=== PATIENT | female | born 1985 ===

== ENCOUNTER 2017-06-10 17:28 | Emergency (ER) | payer MEDICAID ==
[2017-06-10 17:28] VITALS: BMI 28.9
[2017-06-10 17:55] VITALS: BP 103/57; PULSE 74; RESP 16; TEMP 98.8; O2SAT 100
[2017-06-10] MEDS ORDERED: Sodium Chloride 0.9% 1,000 ML IV STA (18:51)
--- NOTE | 2017-06-10 18:54 | ED PDOC ---
HPI: Abdomen Time Seen by Provider: 06/10/17 18:35 Chief Complaint (Nursing): Abdominal Pain Chief Complaint (Provider): Abdominal pain History Per: Patient Additional Complaint(s): 31 yo female, no PMH, presents to ED for evaluation of lower abdominal/pelvic pain x 1 month. No vaginal discharge, no concern for STI LMP 05/28/17. Pt reports it was a very heavy period, worse than usual. Pt has been taking Aleve with mild relief. Past Medical History Reviewed: Nursing Documentation, Vital Signs Vital Signs: Last Vital Signs Temp 98.8 F 06/10/17 17:51 Pulse 74 06/10/17 17:51 Resp 16 06/10/17 17:51 BP 103/57 L 06/10/17 17:51 Pulse Ox 100 06/10/17 18:55 - Medical History PMH: Anemia, Anxiety Denies: Chronic Kidney Disease - Surgical History Surgical History: No Surg Hx - Family History Family History: States: No Known Family Hx - Living Arrangements Living Arrangements: With Family - Social History Current smoker - smoking cessation education provided: No Alcohol: Social Drugs: Denies - Home Medications Home Medications: Ambulatory Orders Medication Instructions Recorded Ibuprofen [Motrin Tab] 800 mg PO TID 07/16/16 - Allergies Allergies/Adverse Reactions: Allergies Allergy/AdvReac Type Severity Reaction Status Date / Time No Known Allergies Allergy Verified 02/14/16 11:22 Review of Systems ROS Statement: Except As Marked, All Systems Reviewed And Found Negative Gastrointestinal: Positive for: Abdominal Pain Physical Exam - Reviewed Nursing Documentation Reviewed: Yes Vital Signs Reviewed: Yes - Physical Exam Appears: Positive for: Well, Non-toxic, No Acute Distress Head Exam: Positive for: ATRAUMATIC, NORMAL INSPECTION, NORMOCEPHALIC Skin: Positive for: Normal Color, Warm, DRY Eye Exam: Positive for: EOMI, Normal appearance, PERRL ENT: Positive for: Normal ENT Inspection Neck: Positive for: Normal, Painless ROM Cardiovascular/Chest: Positive for: Regular Rate, Rhythm Respiratory: Positive for: CNT, Normal Breath Sounds Gastrointestinal/Abdominal: Positive for: Bowel Sounds, Soft, Tenderness (mild suprapubic). Negative for: Distended, Guarding Back: Positive for: Normal Inspection Extremity: Positive for: Normal ROM Neurologic/Psych: Positive for: Alert, Oriented - Laboratory Results Result Diagrams: 06/10/17 18:45 06/10/17 18:45 - ECG O2 Sat by Pulse Oximetry: 100 Medical Decision Making Medical Decision Making: IV access established and treatment initiated with Toradol and IVF Diagnostics ordered. CBC, COMP and UA resulted WNL US pending Case endorsed to JORGE LUIS Bailey at 20:00 pending diagnostic review and re-eval Disposition - Clinical Impression Clinical Impression: Abdominal discomfort - Patient ED Disposition Is Patient to be Admitted: Transfer of Care (jane) - Disposition Disposition: Transfer of Care ([facility]) Disposition Time: 20:10 Condition: STABLE
[2017-06-10 19:07] LABS: BASO % 0.2 % (0.0-2.0); EOS # 0.1 K/uL (0.0-0.7); EOS % 1.5 % (0.0-4.0); HEMATOCRIT 37.3 % (34.0-47.0); LYMPH # 1.4 K/uL (1.0-4.3); LYMPH % 17.9 % (20.0-40.0); MEAN CELL VOLUME 83.4 fl (81.0-99.0); MEAN CORPUSCULAR HEMOGLOBIN 26.9 pg (27.0-31.0); MEAN CORPUSCULAR HGB CONC 32.3 g/dL (33.0-37.0); MEAN PLATELET VOLUME 10.1 fl (7.2-11.7); MONO # 0.5 K/uL (0.0-0.8); MONO % 6.1 % (0.0-10.0); NEUT # 5.9 K/uL (1.8-7.0); NEUT % 74.3 % (50.0-75.0); RED CELL DISTRIBUTION WIDTH 15.4 % (11.5-14.5); WHITE BLOOD COUNT 7.9 K/uL (4.8-10.8)
[2017-06-10 19:21] LABS: RBC URINE 2 /hpf (0-3); URINE BACTERIA RARE (<OCC); URINE BILIRUBIN NEGATIVE (NEGATIVE); URINE BLOOD NEGATIVE (NEGATIVE); URINE COLOR YELLOW (YELLOW); URINE GLUCOSE (UA) NEG (Normal); URINE KETONE NEGATIVE (NEGATIVE); URINE LEUKOCYTE ESTERASE NEG Leu/uL (Negative); URINE PROTEIN NEGATIVE (NEGATIVE); URINE UROBILINOGEN 0.2-1.0 mg/dL (0.2-1.0); WBC URINE < 1 /hpf (0-5)
[2017-06-10 19:24] LABS: ALB/GLOB RATIO 1.2 (1.0-2.1); ALKALINE PHOSPHATASE 68 U/L (38-126); ALT/SGPT 34 U/L (9-52); AMYLASE 93 U/L (30-110); AST/SGOT 23 U/L (14-36); BILIRUBIN,TOTAL 0.4 mg/dl (0.2-1.3); BLOOD UREA NITROGEN 12 mg/dl (7-17); CALCIUM 9.2 mg/dL (8.4-10.2); CARBON DIOXIDE 25 mmol/L (22-30); CHLORIDE 105 mmol/L (98-107); GFR AFRICAN-AMERICAN > 60; GLUCOSE,RANDOM 86 mg/dL (65-105); LIPASE 48 U/L (23-300); POTASSIUM 4.2 MMOL/L (3.6-5.0); SODIUM 140 mmol/l (132-148); TOTAL PROTEIN 7.9 G/DL (6.3-8.2)
--- NOTE | 2017-06-10 20:58 | ED PDOC ---
- Laboratory Results Result Diagrams: 06/10/17 18:45 06/10/17 18:45 - ECG O2 Sat by Pulse Oximetry: 100 - Progress ED Course And Treament: Case endorsed to life underwriter from Dee KANG pending u/s On re-eval, patient states she does not wish to wait for ultrasound to come in. Patient denies upper abdominal pain, notes improvement of her suprapubic pain that has been going on for [address] abd/pelvis ordered. EXAM: CT Abdomen and Pelvis Without Intravenous Contrast CLINICAL HISTORY: 31 years old, female; Pain; Abdominal pain; Other: Low abd pain TECHNIQUE: Axial computed tomography images of the abdomen and pelvis without intravenous contrast. This CT exam was performed using one or more of the following dose reduction techniques: automated exposure control, adjustment of the mA and/or kV according to patient size, and/ or use of iterative reconstruction technique. Coronal and sagittal reformatted images were created and reviewed. COMPARISON: No relevant prior studies available. FINDINGS: Limitations: Lack of intravenous contrast. Lower thorax: No acute findings. ABDOMEN: Liver: Unremarkable. Gallbladder and bile ducts: No calcified stones. No ductal dilation. Pancreas: Unremarkable. No ductal dilation. Spleen: No splenomegaly. Adrenals: No mass. Kidneys and ureters: No renal calculi. No hydronephrosis. Stomach and bowel: No definite mural thickening. No obstruction. Appendix: Normal caliber. No inflammation. PELVIS: Bladder: Unremarkable. No stones. Reproductive: Unremarkable as visualized. ABDOMEN and PELVIS: Intraperitoneal space: No significant fluid collection. No free air. Bones/joints: No acute fracture. Soft tissues: Unremarkable. Vasculature: Unremarkable. No aneurysm. Lymph nodes: No pathologically enlarged lymph nodes. IMPRESSION: 1. No definite acute intraabdominal abnormality. 2. Incidental/non-acute findings are described above. On re-eval, patient resting comfortably. Patient states pain is same type of pain she has been having for 1 month, was sent for outpatient u/s by [employer] but is having a hard time due to insurance issues. Patient was offered to stay until on-call ultrasound comes in, but states she would like to go home. Patient was educated on findings, discharged with rx Naproxen. Advised to follow up with [facility] as scheduled. Return to ED for worsening/concerning symptoms. Disposition - Clinical Impression Clinical Impression: Abdominal discomfort - POA Present On Arrival: None - Disposition Disposition: Routine/Home Disposition Time: 22:11 Condition: IMPROVED Prescriptions: Naproxen [Naprosyn] 500 mg PO Q12 PRN #20 tablet PRN Reason: Pain, Moderate (4-7) Instructions: Abdominal Pain (ED), Pelvic Pain in Women (ED)
--- NOTE | 2017-06-10 21:19 | CT ---
EXAM: CT Abdomen and Pelvis Without Intravenous Contrast CLINICAL HISTORY: 31 years old, female; Pain; Abdominal pain; Other: Low abd pain TECHNIQUE: Axial computed tomography images of the abdomen and pelvis without intravenous contrast. This CT exam was performed using one or more of the following dose reduction techniques: automated exposure control, adjustment of the mA and/or kV according to patient size, and/or use of iterative reconstruction technique. Coronal and sagittal reformatted images were created and reviewed. COMPARISON: No relevant prior studies available. FINDINGS: Limitations: Lack of intravenous contrast. Lower thorax: No acute findings. ABDOMEN: Liver: Unremarkable. Gallbladder and bile ducts: No calcified stones. No ductal dilation. Pancreas: Unremarkable. No ductal dilation. Spleen: No splenomegaly. Adrenals: No mass. Kidneys and ureters: No renal calculi. No hydronephrosis. Stomach and bowel: No definite mural thickening. No obstruction. Appendix: Normal caliber. No inflammation. PELVIS: Bladder: Unremarkable. No stones. Reproductive: Unremarkable as visualized. ABDOMEN and PELVIS: Intraperitoneal space: No significant fluid collection. No free air. Bones/joints: No acute fracture. Soft tissues: Unremarkable. Vasculature: Unremarkable. No aneurysm. Lymph nodes: No pathologically enlarged lymph nodes. IMPRESSION: 1. No definite acute intraabdominal abnormality. 2. Incidental/non-acute findings are described above.
== END 2017-06-10 22:45 | disposition home or self-care (01) ==
LOC: H.ER 17:28
DX: R10.9 Unspecified abdominal pain (principal)

== ENCOUNTER 2018-08-03 18:06 | Emergency (ER) | payer MEDICAID, OTHER ==
[2018-08-03 18:06] VITALS: BMI 28.9
[2018-08-03 18:51] VITALS: BP 108/72; PULSE 97; RESP 20; TEMP 98.9; O2SAT 98
--- NOTE | 2018-08-03 19:01 | ED PDOC ---
HPI: CCC, URI, Sore Throat Time Seen by Provider: 08/03/18 18:53 Chief Complaint (Nursing): Cough, Cold, Congestion Chief Complaint (Provider): Cough History Per: Patient Onset/Duration Of Symptoms: Days (x2) Current Symptoms Are (Timing): Still Present Location Of Pain: None Associated Symptoms: Cough (mild). denies: Fever, Chills Ear Symptoms: Bilateral: None Additional Complaint(s): Zakia Wick is a 33 year old female, with a past medical history of Lupus, who presents to the emergency department complaining of a mild cough ongoing for x2 days. Patient states x3 days ago she noticed her air conditioner at home was building up water and patient was concerned she was "inhaling" bacteria. She did not take any medication for symptoms. She denies any fever, chills, shortness of breath, chest pain or other medical complaints. PMD: Fredi Gastelum Past Medical History Reviewed: Historical Data, Nursing Documentation, Vital Signs Vital Signs: Last Vital Signs Temp 98.9 F 08/03/18 18:49 Pulse 97 H 08/03/18 18:49 Resp 20 08/03/18 18:49 BP 108/72 08/03/18 18:49 Pulse Ox 98 08/03/18 19:12 - Medical History PMH: Anemia, Anxiety Other PMH: Lupus - Surgical History Other surgeries: Lipoma removed from left leg - Family History Family History: States: No Known Family Hx - Living Arrangements Living Arrangements: With Family - Social History Current smoker - smoking cessation education provided: No Alcohol: None Drugs: Denies - Home Medications Home Medications: Ambulatory Orders Medication Instructions Recorded Ibuprofen [Motrin Tab] 800 mg PO TID 07/16/16 Naproxen [Naprosyn] 500 mg PO Q12 PRN #20 tablet 06/10/17 Albuterol HFA [Ventolin HFA 90 1 puff IH ASDIR #1 unit 08/03/18 mcg/actuation (8 g)] - Allergies Allergies/Adverse Reactions: Allergies Allergy/AdvReac Type Severity Reaction Status Date / Time No Known Allergies Allergy Verified 08/03/18 18:48 Review of Systems ROS Statement: Except As Marked, All Systems Reviewed And Found Negative Constitutional: Negative for: Fever, Chills Cardiovascular: Negative for: Chest Pain Respiratory: Positive for: Cough (mild). Negative for: Shortness of Breath Gastrointestinal: Negative for: Nausea, Vomiting Neurological: Negative for: Headache, Dizziness Physical Exam - Reviewed Nursing Documentation Reviewed: Yes Vital Signs Reviewed: Yes - Physical Exam Appears: Positive for: Well, Non-toxic, No Acute Distress Head Exam: Positive for: ATRAUMATIC, NORMAL INSPECTION, NORMOCEPHALIC Skin: Positive for: Normal Color. Negative for: Rash Eye Exam: Positive for: Normal appearance Neck: Positive for: Painless ROM Cardiovascular/Chest: Positive for: Regular Rate, Rhythm. Negative for: Murmur Respiratory: Positive for: Normal Breath Sounds. Negative for: Respiratory Distress Extremity: Positive for: Normal ROM (upper and lower extremities). Negative for : Deformity, Swelling Neurologic/Psych: Positive for: Alert, Oriented - Laboratory Results Urine POC: Negative - ECG O2 Sat by Pulse Oximetry: 98 (RA) Pulse Ox Interpretation: Normal - Other Rad CXR X-Ray: Interpreted by Me, Viewed By Me X-Ray Interpretation: no acute finding Medical Decision Making Medical Decision Making: Time: 18:53 Initial Impression: 33 y/o female with cough Initial Plan: --Urine --Chest two views (PA/LAT) [RAD] Rx albuterol inhaler given. Advised PMD follow up. Scribe Attestation: Documented by Zachary Headley, acting as a scribe for Shae Cisneros PA-C Provider Scribe Attestation: All medical record entries made by the Scribe were at my direction and personally dictated by me. I have reviewed the chart and agree that the record accurately reflects my personal performance of the history, physical exam, medical decision making, and the department course for this patient. I have also personally directed, reviewed, and agree with the discharge instructions and disposition. Disposition - Clinical Impression Clinical Impression: Cough - Patient ED Disposition Is Patient to be Admitted: No Counseled Patient/Family Regarding: Studies Performed, Diagnosis, Need For Followup, Rx Given - Disposition Referrals: Fredi Gastelum MD [Family Provider] - Disposition: Routine/Home Disposition Time: 19:43 Condition: STABLE Additional Instructions: Take rx meds as directed. Follow up in 2-3 days with primary care doctor. Prescriptions: Albuterol HFA [Ventolin HFA 90 mcg/actuation (8 g)] 1 puff IH ASDIR #1 unit Instructions: Cough in Adults Forms: [facility] (Swiss)
== END 2018-08-03 20:12 | disposition home or self-care (01) ==
LOC: H.ER 18:06
DX: R05 Cough (principal); M32.9 Systemic lupus erythematosus, unspecified; F41.9 Anxiety disorder, unspecified

== ENCOUNTER 2018-09-21 21:08 | Emergency (ER) | payer OTHER ==
[2018-09-21 21:08] VITALS: BMI 28.9
[2018-09-21 21:20] VITALS: RESP 18; TEMP 97.6; O2SAT 98
[2018-09-21 21:58] LABS: BASO % 0.3 % (0.0-2.0); EOS # 0.1 K/uL (0.0-0.7); EOS % 1.4 % (0.0-4.0); HEMOGLOBIN 10.7 g/dL (12.0-16.0); LYMPH % 32.2 % (20.0-40.0); MEAN CELL VOLUME 75.9 fl (81.0-99.0); MEAN CORPUSCULAR HEMOGLOBIN 24.2 pg (27.0-31.0); MEAN CORPUSCULAR HGB CONC 31.9 g/dL (33.0-37.0); MEAN PLATELET VOLUME 9.6 fl (7.2-11.7); MONO # 0.6 K/uL (0.0-0.8); NEUT # 3.6 K/uL (1.8-7.0); NEUT % 57.1 % (50.0-75.0); RBC 4.43 Mil/uL (3.80-5.20); RED CELL DISTRIBUTION WIDTH 14.6 % (11.5-14.5); WHITE BLOOD COUNT 6.3 K/uL (4.8-10.8)
--- NOTE | 2018-09-21 21:59 | ED PDOC ---
HPI: Chest Pain Time Seen by Provider: 09/21/18 21:22 Chief Complaint (Nursing): Chest Pain Chief Complaint (Provider): Chest pain History Per: Patient History/Exam Limitations: no limitations Onset/Duration Of Symptoms: Hrs (x2) Current Symptoms Are (Timing): Still Present Additional Complaint(s): Zakia Wick is a 33 year old female, with a past medical history of Lupus, who presents to the emergency department for evaluation of chest pain onset x2 hrs prior to arrival. Patient also reports having an intermittent headache for x3 days which resolved today. However, after she was driving, she developed an acute chest pain that radiated to left arm. Patient states her left arm felt numb at the time but has resolved. Patient has had increased stress recently s tating she recently found out her brother had a cyst in his brain and her grandfather was recently diagnosed with a brain tumor. She denies any nausea, vomiting, visual disturbance or weakness. No further medical complaints. PMD: Kam Randall Past Medical History Reviewed: Historical Data, Nursing Documentation, Vital Signs Vital Signs: Last Vital Signs Temp 97.6 F 09/21/18 21:19 Pulse 71 09/21/18 21:19 Resp 18 09/21/18 21:19 BP 122/84 09/21/18 21:19 Pulse Ox 98 09/21/18 21:19 - Medical History PMH: Anemia, Anxiety Denies: Chronic Kidney Disease Other PMH: Lupus - Surgical History Other surgeries: LEEP procedure - Family History Family History: States: Unknown Family Hx - Social History Current smoker - smoking cessation education provided: No Alcohol: None Drugs: Denies - Home Medications Home Medications: Ambulatory Orders Medication Instructions Recorded Ibuprofen [Motrin Tab] 800 mg PO TID 07/16/16 Naproxen [Naprosyn] 500 mg PO Q12 PRN #20 tablet 06/10/17 Albuterol HFA [Ventolin HFA 90 1 puff IH ASDIR #1 unit 08/03/18 mcg/actuation (8 g)] - Allergies Allergies/Adverse Reactions: Allergies Allergy/AdvReac Type Severity Reaction Status Date / Time No Known Allergies Allergy Verified 08/03/18 18:48 Review of Systems ROS Statement: Except As Marked, All Systems Reviewed And Found Negative Eyes: Negative for: Vision Change Cardiovascular: Positive for: Chest Pain (resolved) Gastrointestinal: Negative for: Nausea, Vomiting Neurological: Positive for: Numbness (left arm. resolved). Negative for: Weakness Physical Exam - Reviewed Nursing Documentation Reviewed: Yes Vital Signs Reviewed: Yes - Physical Exam Appears: Positive for: No Acute Distress Head Exam: Positive for: ATRAUMATIC, NORMAL INSPECTION, NORMOCEPHALIC Skin: Positive for: Normal Color, Warm, Dry Eye Exam: Positive for: Normal appearance, EOMI, PERRL Neck: Positive for: Normal, Painless ROM, Supple Cardiovascular/Chest: Positive for: Regular Rate, Rhythm. Negative for: Murmur Respiratory: Positive for: Normal Breath Sounds. Negative for: Respiratory Distress Gastrointestinal/Abdominal: Positive for: Normal Exam, Soft. Negative for: Tenderness, Guarding, Rebound Back: Positive for: Normal Inspection. Negative for: L CVA Tenderness, R CVA Tenderness, Vertebral Tenderness Extremity: Positive for: Normal ROM (upper and lower extremities). Negative for: Calf Tenderness, Deformity, Swelling Neurologic/Psych: Positive for: Alert, Oriented. Negative for: Motor/Sensory Deficits - Laboratory Results Result Diagrams: 09/21/18 21:53 09/21/18 21:53 - ECG O2 Sat by Pulse Oximetry: 98 (RA) Pulse Ox Interpretation: Normal Medical Decision Making Medical Decision Making: Time: 21:22 Initial Impression: 33 y/o female with transient chest pain and left arm numbne ss likely secondary to anxiety Initial Plan: --Head w/o contrast [CT] --EKG --CMP --Troponin I --Urine --Urine dipstick --CBC w/ differential --Reevaluation 22:[address] COMPARISON: 02/25/13 no significant interval difference. FINDINGS: BRAIN No acute intraparenchymal hemorrhage. No mass lesion. No CT evidence for acute supraterritorial infarct. No midline shift or extra-axial collections. VENTRICLES: No hydrocephalus. ORBITS: The orbits are unremarkable. SINUSES AND MASTOIDS: The paranasal sinuses and mastoid air cells are clear. BONES: No fracture. SOFT TISSUES: Unremarkable. MISCELLANEOUS: Normal study IMPRESSION: Normal study. 00:50 --Labs reviewed and reveal no clinically significant abnormalities. Patient is stable and will be discharged. Diagnoses are atypical chest pain and anxiety. Scribe Attestation: Documented by Zachary Headley, acting as a scribe for Clint Cho MD. Provider Scribe Attestation: All medical record entries made by the Scribe were at my direction and personally dictated by me. I have reviewed the chart and agree that the record accurately reflects my personal performance of the history, physical exam, medical decision making, and the department course for this patient. I have also personally directed, reviewed, and agree with the discharge instructions and disposition. Disposition - Clinical Impression Clinical Impression: Atypical chest pain, Anxiety - Patient ED Disposition Is Patient to be Admitted: No - Disposition Disposition: Routine/Home Disposition Time: 22:50 Condition: STABLE Additional Instructions: ZAKIA WICK, thank you for letting us take care of you today. Your provider was Clint Rodriguez MD and you were treated for CHEST PAIN, NUMBNESS LEG ARM. The emergency medical care you received today was directed at your acute symptoms. If you were prescribed any medication, please fill it and take as directed. It may take several days for your symptoms to resolve. Return to the Emergency Department if your symptoms worsen, do not improve, or if you have any other problems. Please contact your doctor or call one of the physicians/clinics you have been referred to that are listed on the Patient Visit Information form that is included in your discharge packet. Bring any paperwork you were given at discharge with you along with any medications you are taking to your follow up visit. Our treatment cannot replace ongoing medical care by a primary care provider outside of the emergency department. Thank you for allowing the [email or web address] team to be part of your care today. If you had an X-Ray or CT scan: A Radiologist will review the ED reading if any change in treatment is needed we will contact you. If you had a blood, urine, or wound culture: It will take several days for the results, if any change in treatment is needed we will contact you. If you had an STI test: It will take 48 hours for the results. Please call after 1 week if you have not heard back. Instructions: Chest Pain That Is Not Caused by the Heart (DC) Forms: [employer] (Lao)
[2018-09-21 22:10] LABS: ALBUMIN 4.2 g/dL (3.5-5.0); ALT/SGPT 22 U/L (9-52); AST/SGOT 25 U/L (14-36); BLOOD UREA NITROGEN 16 mg/dl (7-17); CALCIUM 9.1 mg/dL (8.4-10.2); GFR NON-AFRICAN AMERICAN > 60
[2018-09-22 00:52] VITALS: BP 97/53; PULSE 72
--- NOTE | 2018-09-22 07:06 | CARD ---
APPROVED REPORT Date of service: 09/21/2018 EKG Measurement Heart [id number] <Conclusion> Normal sinus rhythm Normal ECG
--- NOTE | 2018-09-22 08:41 | CT ---
Date of service: 09/21/2018 PROCEDURE: CT HEAD WITHOUT CONTRAST. HISTORY: headache COMPARISON: None available. TECHNIQUE: Axial computed tomography images were obtained through the head/brain without intravenous contrast. Radiation dose: Total exam DLP = 745.69 mGy-cm. This CT exam was performed using one or more of the following dose reduction techniques: Automated exposure control, adjustment of the mA and/or kV according to patient size, and/or use of iterative reconstruction technique. FINDINGS: HEMORRHAGE: No intracranial hemorrhage. BRAIN: No mass effect or edema. No atrophy or chronic microvascular ischemic changes. VENTRICLES: Unremarkable. No hydrocephalus. CALVARIUM: Unremarkable. PARANASAL SINUSES: Unremarkable as visualized. No significant inflammatory changes. MASTOID AIR CELLS: Unremarkable as visualized. No inflammatory changes. OTHER FINDINGS: None. IMPRESSION: Normal CT of the Head. Concordant results (preliminary interpretation) provided by [facility].
== END 2018-09-22 01:01 | disposition home or self-care (01) ==
LOC: H.ER 21:08
DX: R07.89 Other chest pain (principal); F41.9 Anxiety disorder, unspecified; M32.9 Systemic lupus erythematosus, unspecified

== ENCOUNTER 2018-10-11 12:08 | Emergency (ER) | payer OTHER ==
[2018-10-11 12:08] VITALS: BMI 28.9
--- NOTE | 2018-10-11 13:41 | ED PDOC ---
HPI: CCC, URI, Sore Throat Time Seen by Provider: 10/11/18 12:37 Chief Complaint (Nursing): Shortness Of Breath Chief Complaint (Provider): Cough History Per: Patient History/Exam Limitations: no limitations Additional Complaint(s): Pt reports midsternal CP, worse with cough. Denies fever, SOB, palpitations, recent travel, OCP use, leg swelling. Past Medical History Reviewed: Nursing Documentation, Vital Signs Vital Signs: Last Vital Signs Temp 98.8 F 10/11/18 12:23 Pulse 82 10/11/18 12:23 Resp 16 10/11/18 12:23 BP 107/66 10/11/18 12:23 Pulse Ox 99 10/11/18 12:23 - Medical History PMH: Anemia, Anxiety Denies: Chronic Kidney Disease Other PMH: Lupus - Family History Family History: States: Unknown Family Hx - Social History Current smoker - smoking cessation education provided: No Alcohol: None - Home Medications Home Medications: Ambulatory Orders Medication Instructions Recorded Ibuprofen [Motrin Tab] 800 mg PO TID 07/16/16 Naproxen [Naprosyn] 500 mg PO Q12 PRN #20 tablet 06/10/17 Albuterol HFA [Ventolin HFA 90 1 puff IH ASDIR #1 unit 08/03/18 mcg/actuation (8 g)] - Allergies Allergies/Adverse Reactions: Allergies Allergy/AdvReac Type Severity Reaction Status Date / Time tramadol Allergy VOMITING Verified 10/11/18 13:05 Review of Systems Constitutional: Negative for: Fever, Chills Cardiovascular: Positive for: Chest Pain. Negative for: Palpitations Respiratory: Positive for: Cough, Pleuritic Pain. Negative for: Shortness of Breath, Hemoptysis, SOB with Exertion, Sputum, Wheezing Skin: Negative for: Rash, Lesions Neurological: Negative for: Headache, Dizziness Physical Exam - Reviewed Nursing Documentation Reviewed: Yes Vital Signs Reviewed: Yes - Physical Exam Appears: Positive for: Well, No Acute Distress (Speaking on phone without difficulty) Skin: Positive for: Normal Color, Warm, Dry Eye Exam: Positive for: Normal appearance, EOMI, PERRL Cardiovascular/Chest: Positive for: Regular Rate, Rhythm. Negative for: Chest Non Tender (TTP midsternum) Respiratory: Positive for: Normal Breath Sounds. Negative for: Rales, Rhonchi, Wheezing Gastrointestinal/Abdominal: Positive for: Normal Exam Back: Positive for: Normal Inspection Extremity: Positive for: Normal ROM. Negative for: Tenderness, Pedal Edema, Swelling Neurologic/Psych: Positive for: Alert, Oriented - Laboratory Results Result Diagrams: 10/11/18 13:56 10/11/18 13:56 - ECG O2 Sat by Pulse Oximetry: 99 Medical Decision Making Medical Decision Makin yo female with pleuritic CP. - labs - EKG - CXR - Motrin Disposition - Clinical Impression Clinical Impression: Dyspnea - Disposition Disposition Time: 17:00 Condition: IMPROVED Additional Instructions: FOLLOW UP WITH YOUR DOCTOR TOMORROW FOR FURTHER EVALUATION Instructions: Shortness of Breath (Dyspnea) (DC) Forms: [facility] ED School/Work Excuse Patient Signed Over To: Shae Patel
[2018-10-11 14:05] LABS: BASO % 0.5 % (0.0-2.0); EOS # 0.1 K/uL (0.0-0.7); EOS % 1.9 % (0.0-4.0); HEMOGLOBIN 10.1 g/dL (12.0-16.0); LYMPH # 1.3 K/uL (1.0-4.3); LYMPH % 27.5 % (20.0-40.0); MEAN CORPUSCULAR HGB CONC 30.2 g/dL (33.0-37.0); MEAN PLATELET VOLUME 9.4 fl (7.2-11.7); MONO # 0.4 K/uL (0.0-0.8); MONO % 7.7 % (0.0-10.0); NEUT # 3.1 K/uL (1.8-7.0); NEUT % 62.4 % (50.0-75.0); NRBC % 0.1 % (0.0-0.0); RBC 4.39 Mil/uL (3.80-5.20); RED CELL DISTRIBUTION WIDTH 15.2 % (11.5-14.5); WHITE BLOOD COUNT 4.9 K/uL (4.8-10.8)
[2018-10-11 14:06] LABS: INR 1.2; PROTHROMBIN TIME 13.2 Seconds (9.8-13.1)
[2018-10-11 14:09] LABS: PARTIAL THROMBOPLASTIN TIME 33.2 Seconds (25.6-37.1)
[2018-10-11 14:15] LABS: ALB/GLOB RATIO 1.1 (1.0-2.1); ALT/SGPT 22 U/L (9-52); AST/SGOT 26 U/L (14-36); BLOOD UREA NITROGEN 9 mg/dl (7-17); CALCIUM 8.8 mg/dL (8.4-10.2); GFR NON-AFRICAN AMERICAN > 60
--- NOTE | 2018-10-11 14:49 | RAD ---
Date of service: 10/11/2018 HISTORY: Pleuritic CP COMPARISON: 08/03/2018 TECHNIQUE: Chest PA and lateral FINDINGS: LUNGS: No active pulmonary disease. PLEURA: No significant pleural effusion identified. No pneumothorax apparent. CARDIOVASCULAR: No aortic atherosclerotic calcification present. Normal cardiac size. No pulmonary vascular congestion. OSSEOUS STRUCTURES: No significant abnormalities. VISUALIZED UPPER ABDOMEN: Normal. OTHER FINDINGS: None. IMPRESSION: No active disease. No significant interval change compared to the prior examination(s).
[2018-10-11] MEDS ORDERED: Iodixanol 320 MG/ML 100 ML BOTTLE IV ONE (16:31)
[2018-10-11] MEDS ORDERED: Sodium Chloride 0.9% 50 ML IV ONE (16:32)
--- NOTE | 2018-10-11 17:25 | CT ---
Date of service: 10/11/2018 PROCEDURE: CT Chest with contrast (Pulmonary Angiogram) HISTORY: Pleuritic CP COMPARISON: Correlation made with chest radiograph obtained earlier same day TECHNIQUE: Axial computed tomography images were obtained of the chest in the pulmonary arterial phase of enhancement. Coronal and sagittal reformatted images were created and reviewed. Intravenous contrast dose: Radiation dose: Total exam DLP = 359.95 mGy-cm. This CT exam was performed using one or more of the following dose reduction techniques: Automated exposure control, adjustment of the mA and/or kV according to patient size, and/or use of iterative reconstruction technique. FINDINGS: PULMONARY ARTERIES: Note that the examination is somewhat limited due to suboptimal opacification of the pulmonary arteries. Visualized pulmonary trunk, right and left main, lobar, segmental and proximal subsegmental branches of the pulmonary arteries are well opacified with no definitive filling defects seen to suggest acute central pulmonary embolus. Pulmonary trunk measures approximately 2.9 cm. AORTA: The ascending thoracic aorta measures approximately 3.0 cm and descending thoracic aorta measures approximately 2.2 cm.. No significant aortic calcified atherosclerotic plaque. LUNGS: Mild passive/dependent type atelectasis seen in the posterior lower lung barba. Lung barba otherwise clear. No evidence of parenchymal masses or nodules. PLEURAL SPACES: Unremarkable. No effusion or pneumothorax. HEART: Heart size within range of normal. No significant pericardial effusion.. No significant pericardial effusion. LYMPH NODES: No significant mediastinal or hilar lymphadenopathy. She the trachea is midline and patent with no large central endoluminal lesions. BONES, CHEST WALL: Mild multilevel degenerative spondylosis of the thoracic spine. There are no acute compression fractures no retropulsed fragments. Vertebral bodies exhibit normal stature of. Vertebral bodies and facets normally aligned. OTHER FINDINGS: The spleen is upper limits of normal measuring nearly 13 cm in AP dimension. IMPRESSION: Suboptimal exam as described. No definitive radiographic evidence of acute central pulmonary embolus. Mild passive/dependent type atelectasis both posterior lower lung barba however the lung barba otherwise clear.. The spleen is upper limits of normal in size as described
--- NOTE | 2018-10-11 18:37 | ED PDOC ---
- Laboratory Results Result Diagrams: 10/11/18 13:56 10/11/18 13:56 - ECG O2 Sat by Pulse Oximetry: 99 Disposition - Clinical Impression Clinical Impression: Dyspnea - POA Present On Arrival: None - Disposition Disposition: Routine/Home Disposition Time: 18:38 Condition: IMPROVED Additional Instructions: FOLLOW UP WITH YOUR DOCTOR TOMORROW FOR FURTHER EVALUATION Instructions: Shortness of Breath (Dyspnea) (DC) Forms: [facility] ED School/Work Excuse
[2018-10-12 00:09] VITALS: BP 113/75; PULSE 97; RESP 15; TEMP 98.5
--- NOTE | 2018-10-12 09:10 | CARD ---
APPROVED REPORT Date of service: 10/11/2018 EKG Measurement Heart [id number] <Conclusion> Normal sinus rhythm Normal ECG
[2018-10-13 14:28] VITALS: O2SAT 99
== END 2018-10-11 18:58 | disposition home or self-care (01) ==
LOC: H.ER 12:08
DX: R06.00 Dyspnea, unspecified (principal); M32.9 Systemic lupus erythematosus, unspecified; F41.9 Anxiety disorder, unspecified
CPT/HCPCS: 71046; 71275; 80053; 81025; 84484; 85025; 85378; 85610; 85730; 93005; 99284; Q9967